=== PATIENT | female | born 1985 | race Caucasian/White ===

== ENCOUNTER 2021-03-25 15:40 | Emergency (ER) | payer BC, OTHER ==
[2021-03-25 16:13] VITALS: TEMP 98.3; BMI 20.3
[2021-03-25] MEDS ORDERED: CASIRIVIMAB/IMDEVIMAB 10 ML in SODIUM CHLORIDE 100 ML IVPB ONE (16:36)
[2021-03-25 18:47] VITALS: BP 120/67; PULSE 89
== END 2021-03-25 18:48 | disposition home or self-care (01) ==
LOC: JER 15:40
DX: U07.1 COVID-19 (principal)
CPT/HCPCS: 99284-25; Q0240